=== PATIENT | female | born 1980 | race Caucasian/White ===

== ENCOUNTER 2017-08-16 16:46 | Emergency (ER) | payer SELFPAY ==
[~2017-08-16] VITALS: Ht 160 cm; Wt 81.7 kg
[~2017-08-16 16:46] MED LIST: CLARITIN10 M2 PO; FISH OIL 1,0001 EAC8 PO; LIPITOR 10 MG10 M1 PO; PRILOSEC 20 MG20 MG PO; VITAMIN D400 UNI1 PO; VITAMINC500 PO; XANAX 0.5 MG0.5 MG PO; ZANTAC 150MG T150 M1 PO; ZINC10 MG PO
[2017-08-16] MEDS ORDERED: CLONAZEPAM 0.50.5 M1 PO (17:00)
[2017-08-16] MEDS ORDERED: NORCO 5-325 TA1 EAC1 PO (18:10)
[2017-08-16 18:34] VITALS: BP 145/88
== END 2017-08-16 18:35 | disposition home or self-care (01) ==
LOC: M.ERS 16:46
DX: S90.32XA Contusion of left foot, initial encounter (principal); S89.82XA Other specified injuries of left lower leg, initial encounter; E78.00 Pure hypercholesterolemia, unspecified; Z88.8 Allergy status to other drugs, medicaments and biological substances; W10.8XXA Fall (on) (from) other stairs and steps, initial encounter; Y93.89 Activity, other specified; Y92.098 Other place in other non-institutional residence as the place of occurrence of the external cause; Y99.8 Other external cause status